=== PATIENT | male | born 1940 | race Caucasian/White ===

== ENCOUNTER → 2023-10-24 12:38 | Outpatient (REF) | payer MEDICARE, SELFPAY | LOC: HWRAD 12:38 | PROVIDERS: ATTENDING PHYSICIAN Nurse Practitioner Family | DX: N40.1 Benign prostatic hyperplasia with lower urinary tract symptoms (principal); R10.30 Lower abdominal pain, unspecified; R19.5 Other fecal abnormalities; Z87.19 Personal history of other diseases of the digestive system | CPT/HCPCS: 74177; Q9967 ==

== ENCOUNTER 2023-10-26 07:03 | Emergency (ER) | payer MEDICARE, SELFPAY ==
[2023-10-26 07:05] VITALS: BP 172/79
--- NOTE | 2023-10-26 07:32 | ED.GENMED ---
History of Present Illness
<Christ Ramos DO, Resident - Last Filed: 10/26/23 09:26>
General
Chief Complaint: Musculo-Skeletal Complaint
Source: patient
Time Seen by Provider: 10/26/23 07:29
History of Present Illness
History of Present Illness:
Patient is a 83-year-old male presenting to the ED with swelling ring finger since Saturday. He reports no inciting injury but severe swelling and difficulty with movement of finger. He states that there is pain and he has been taking ibuprofen
to manage symptoms.
Past History
<Christ Ramos DO, Resident - Last Filed: 10/26/23 09:26>
Past History
ED Past Medical History: GERD, HTN, Psychiatric (anxiety) and Other (BPH, OA, chronic abdominal pain)
ED Past Surgical History: Cholecystectomy (2012) and Other (Adenoidectomy, hemorrhoidectomy)
Social History
Tobacco: Non-smoker
Alcohol: Occasional
Drug: None
Personal:
Living: with family
Employment: Retired
Family History
Family History: Other (Noncontributory)
Review of Systems
<Christ Ramos DO, Resident - Last Filed: 10/26/23 09:26>
Review of Systems
Constitutional: Reports no symptoms
EENT: Reports no symptoms
Respiratory: Reports no symptoms
Cardiac: Reports no symptoms
ABD/GI: Reports no symptoms
: Reports no symptoms
Musculoskeletal: Reports joint swelling and other (finger pain, swelling )
Skin: Reports no symptoms
Phy Exam
<Christ Ramos DO, Resident - Last Filed: 10/26/23 09:26>
General Physical Exam
General Presentation: well appearing and no apparent distress
General age: appears stated age
General Skin: warm and dry
General Habitus: normal
General Mental: alert
General Hydration: appears well hydrated
Musculoskeletal Exam
Musculoskeletal Exam: full ROM and other (pain with ring finger movement, swelling of distal digit, pain around joint distal to ring. )
Skin Exam
Skin Exam: normal color and warm/dry
Psychiatric Exam
Psychiatric Exam: normal mood/affect
Course
<Christ Rmaos DO, Resident - Last Filed: 10/26/23 09:26>
Orders/Labs/Results
Orders:
Orders
10/26/23 07:07
CR Finger(s)/thumb Min 2 Vw Lt Urgent
Comment:
Reason For Exam: swelling
Indicate Which Finger:: Ring Finger
10/26/23 08:48
Ibuprofen [Motrin] 600 mg PO NOW STA
10/26/23 09:12
Aluminium Finger Splint Left ONCE
Vital Signs
Initial and Last Documented VS:
Initial Vital Signs
Temp Pulse Resp BP Pulse Ox
97.9 F 62 18 172/79 96
10/26/23 07:05 10/26/23 07:05 10/26/23 07:05 10/26/23 07:05 10/26/23 07:05
Last Documented Vital Signs
Temp Pulse Resp BP Pulse Ox
98.2 F 62 16 142/78 98
10/26/23 09:51 10/26/23 09:51 10/26/23 09:51 10/26/23 09:51 10/26/23 09:51
<Juno Sahu DO - Last Filed: 10/26/23 14:01>
Orders/Labs/Results
Orders:
Orders
10/26/23 07:07
CR Finger(s)/thumb Min 2 Vw Lt Urgent
Comment:
Reason For Exam: swelling
Indicate Which Finger:: Ring Finger
10/26/23 08:48
Ibuprofen [Motrin] 600 mg PO NOW STA
10/26/23 09:12
Aluminium Finger Splint Left ONCE
Vital Signs
Initial and Last Documented VS:
Initial Vital Signs
Temp Pulse Resp BP Pulse Ox
97.9 F 62 18 172/79 96
10/26/23 07:05 10/26/23 07:05 10/26/23 07:05 10/26/23 07:05 10/26/23 07:05
Last Documented Vital Signs
Temp Pulse Resp BP Pulse Ox
98.2 F 62 16 142/78 98
10/26/23 09:51 10/26/23 09:51 10/26/23 09:51 10/26/23 09:51 10/26/23 09:51
<Christ Ramos DO, Resident - Last Filed: 10/26/23 09:26>
MDM/Problems Addressed
Differential Diagnosis Includes:
finger swelling
MDM/Problems Addressed:
Patient is a 83-year-old male presenting to the ED with severe ring finger swelling since Saturday. He is stable. Pain is being managed with ibuprofen. A ring cutter was used to remove his gold band from the finger. Patient was recommended to
ice Finger and use ibuprofen as needed for pain and swelling reduction. finger x-ray showed no fracture or damage to the bone. Injury limited to soft tissue inflammation.
Chronic conditions affecting care:
NA
Acute Exacerbation and/or Progression of Chronic Illness:
NA
<Christ Ramos DO, Resident - Last Filed: 10/26/23 09:26>
*Radiology
Radiology exam reviewed: radiology read reviewed (Xray negative for fracture)
*Pulse Oximetry
Patient hypoxic: not evaluated
*EKG
Interpreted by ED Provider?: NA
*Fretted Instrument Maker Hand Interpretation
Rate: Fretted Instrument Maker Hand- N/A
*Critical Care Note
Total Time (30-74mins, 75-104mins- exclusive of procedures): Not Applicable
ED Attending Note
<Christ Ramos DO, Resident - Last Filed: 10/26/23 09:26>
-
Portions of this chart may have been created with voice recognition software.� Occasional wrong word or��sound alike� substitutions may have occurred due to the inherent limitations of voice recognition software.
<Juno Sahu DO - Last Filed: 10/26/23 14:01>
ED Attending Note
Patient seen and examined by attending physician: Yes
I performed a history and physical exam of patient and discussed management with resident, I reviewed resident's note and agree with documented findings and plan of care.: Yes
ED Attending Note:
Patient is a [id number] 83-year-old male who presents with pain and swelling of the left ring finger. Patient's ring is still on. Patient denies numbness or paresthesias. Patient denies any known injury to the finger. This been going on
for last 2 to 3 days. Patient denies any previous history of similar episodes. On physical exam the patient is very tender and swollen about the PIP joint of the left ring finger. There is pallor distal to the wedding ring. Neurovascularly and
tendons are intact. Skin is intact. Patient is tender mostly around the lateral medial size of the PIP. Patient has full range of motion. X-rays reviewed. Appears the patient has some sort of inflammation of the finger. Ring is removed. This
was done after consultation with the patient to make sure it was okay.. X-rays reviewed. Believe the patient has some sort of inflammation of the finger. Patient will be splinted and treated with anti-inflammatories. Also ice and elevation.
Discharge Plan
Departure
Patient Disposition: Home (Routine Discharge)
Date of Disposition: 10/26/23
Time of Disposition: 09:11
Patient with high blood pressure during this ER visit?: Yes
Condition: Good
Discharge Problem:
Finger swelling
Instructions: BLOOD PRESSURE
Prescriptions:
No Action
losartan 100 MG tablet
100 mg PO DAILY
diclofenac potassium 50 mg tablet
50 mg PO BID Qty: 20 0RF
diazepam [Valium] 2 mg tablet
2 mg PO BID PRN (Reason: muscle spasm) Qty: 10 0RF
Patient Comments:
01/06/2023: last filled 01/06/23, 10 tabs for 5 days from [facility]
cetirizine [Zyrtec] 10 mg Tablet
10 mg PO DAILY PRN (Reason: allergies )
fluticasone propionate [Flonase] 50 mcg/actuation Thelma,Suspension
1 spray INTRANASAL BID PRN (Reason: allergies)
multivitamin Tablet
1 tab PO .5X WEEKLY
clonazepam 0.5 mg tablet
0.5 mg PO HS
Patient Comments:
01/15/2023: last filled 01/06/23, 30 tabs for 30 days from [facility]
calcium carbonate [Tums] 200 mg calcium (500 mg) Tablet,Chewable
200 mg PO BID PRN (Reason: heartburn)
metoprolol succinate 25 mg tablet extended release 24 hr
25 mg PO DAILY
cyclobenzaprine 5 mg tablet
5 mg PO Q8H PRN (Reason: muscle spasms)
Metamucil (with sugar) 3.4 GM powder in packet
3.4 gm PO DAILY PRN (Reason: constipation)
amlodipine 5 mg tablet
5 mg PO DAILY Qty: 30 0RF
Referrals:
Palmer Phan MD [Family Provider] -
Interventions
Interventions:
*Risk Screen - Suicide Last Done: 10/26/23 09:51
*General Assessment Last Done: 10/26/23 07:05
*Neglect/Abuse Screening Last Done: 10/26/23 09:02
ED- Fall Risk Assessment Last Done: 10/26/23 09:05
*ED COVID-19 Vaccine History Last Done: 10/26/23 07:05
*Nursing Disposition Last Done: 10/26/23 09:51
ED-Musculoskeletal Assessment Last Done: 10/26/23 09:05
Discharge Date and Time
Discharge Date/Time: 10/26/23 09:52
Print Language: TURKMEN
[2023-10-26] MEDS: MOTRIN 600 MG PO (08:55)
[2023-10-26 09:02] VITALS: BP 146/85
[2023-10-26 09:51] VITALS: BP 142/78
== END 2023-10-26 09:52 | disposition home or self-care (01) ==
LOC: EMR 07:03
PROVIDERS: EMERGENCY PHYSICIAN Emergency Medicine; FAMILY PHYSICIAN Family Medicine
DX: R22.32 Localized swelling, mass and lump, left upper limb (principal); M79.645 Pain in left finger(s)
CPT/HCPCS: 99283; 73140

== ENCOUNTER → 2024-02-04 10:06 | Outpatient (REF) | payer MEDICARE, SELFPAY ==
[2024-02-04 12:56] LABS: Blood Urea Nitrogen 19 mg/dl (9-20); Calcium 9.9 mg/dl (8.4-10.2); Carbon Dioxide 29 mmol/L (22-30); Chloride 98 mmol/L (98-107); Glucose 101 mg/dl (70-99); HDL Cholesterol 80 mg/dl; LDL Cholesterol, Calculated 90 mg/dl; Potassium 4.4 mmol/L (3.5-5.1); Sodium 137 mmol/L (135-145); Total Cholesterol 183 mg/dl (50-199); Triglyceride 68 mg/dl (10-149); Very Low Density Lipoprotein 13 mg/dl (0-30); eGFR > 60.00
== END ==
LOC: HWLAB 10:06
PROVIDERS: ATTENDING PHYSICIAN Internal Medicine Cardiovascular Disease; FAMILY PHYSICIAN Family Medicine
DX: E78.5 Hyperlipidemia, unspecified (principal); R00.2 Palpitations
CPT/HCPCS: 36415; 80048; 80061

== ENCOUNTER → 2024-11-11 12:59 | Outpatient (REF) | payer OTHER, SELFPAY | LOC: RAD 12:59 | PROVIDERS: ATTENDING PHYSICIAN Internal Medicine | DX: R10.9 Unspecified abdominal pain (principal) | CPT/HCPCS: 74176 ==

== ENCOUNTER → 2024-12-15 10:54 | Outpatient (REF) | payer OTHER, SELFPAY ==
[2024-12-15 12:15] LABS: Urine Character Clear (Clear)
[2024-12-15 12:36] LABS: Urine Red Blood Cell 0-2 /HPF (0-2); Urine Squamous Cell 0-2 /LPF (Few); Urine White Cell 0-2 /HPF (0-5)
== END ==
LOC: REG 10:54
PROVIDERS: ATTENDING PHYSICIAN Specialist
DX: N41.9 Inflammatory disease of prostate, unspecified (principal)
CPT/HCPCS: 81003; 81015

== ENCOUNTER 2025-01-05 08:47 | Inpatient (IN) | payer OTHER, SELFPAY ==
[2025-01-03] VITALS (9 sets, daily range): BP systolic 152–179; BP diastolic 79–92; BMI 24.7; BMI 23.6
--- NOTE | 2025-01-03 13:23 | ED.GENMED ---
History of Present Illness
General
Chief Complaint: Abdominal Symptoms
Source: patient
Time Seen by Provider: 01/03/25 13:14
History of Present Illness
History of Present Illness:
84-year-old male presents to the emergency room complaining of abdominal pain. Pain is located in the lower abdomen particular on the right. Pain began about 6 weeks ago or so. He had a CAT scan as an outpatient which showed diverticulitis. He
was prescribed Augmentin which helped for a while but the pain seem to come back. He has had recent appointments with urology and gastroenterology. His wet cleaner machine thought he might have a recurrence of diverticulitis and prescribed Levaquin
and Flagyl 3 days ago. He does not feel any better and in fact maybe feels a bit worse since starting those antibiotics. He does not have any constipation. He denies any fever or chills.
Past History
Past History
ED Past Medical History: GERD, HTN, Psychiatric (anxiety) and Other (BPH, OA, chronic abdominal pain)
ED Past Surgical History: Cholecystectomy (2012) and Other (Adenoidectomy, hemorrhoidectomy)
Social History
Tobacco: Non-smoker
Alcohol: Occasional
Drug: None
Personal:
Living: with family
Employment: Retired
Family History
Family History: Other (Noncontributory)
Phy Exam
Physical Exam
Physical Exam:
General: Awake, Alert, Oriented X3. No acute distress.
Vitals: unremarkable
Head: Atraumatic
Eyes: Pupils equal, EOMI
Throat: Airway intact, no exudates
Neck: Trachea midline
Lungs: Clear and equal b/l
Heart: Regular rate, no murmurs
Abd: Soft, moderate tenderness lower abdomen, No pulsatile mass
Neuro: Nonfocal
Skin: Warm, dry, no rash
Extremities: pulses equal b/l, no edema
Course
Orders/Labs/Results
Orders:
Orders
01/03/25 13:22
CT Abd/Pel (IV only)-DH only Urgent
Comment:
Reason For Exam: lower abd pain
01/03/25 13:58
Basic Metabolic Panel Urgent
Complete Blood Count/With Diff Urgent
01/03/25 15:31
Urinalysis Reflex To Culture Urgent
Date Specimen was Collected: 01/03/25
Time Specimen was Collected: 15:30
Urine Microscopic Reflex Cult Urgent
01/03/25 17:30
Admit/Transfer Patient As Directed
Co-Sign Provider:
Level of Care: Observation services
Assign to:: Medical/Surgical
Physician / Group: Meet Arias
Diagnosis: Diverticulitis
01/03/25 17:31
Code Status As Directed
Resuscitation Status: Full Code
PRN Pain Medication Management As Directed
May give lesser potent ordered pain med per pt: Yes
preference::
Protocol:: Medication orders for pain may be administered in a
manner that supports deferring to patient preference
when the pt is:
- Requesting an ordered lesser potent pain medication.
Least to most potent pain medications are defined
as: acetaminophen < NSAID < tramadol < opioids
(morphine, oxycodone, hydromorphone).
- Requesting a lesser dose of the same medication IF
ORDERED.
- Requesting a less intrusive route of administration
if both routes are prescribed by the provider (PO <
IV).
01/03/25 17:40
Osmolality, Random Urine Routine
Abnormal Lab Results
01/03/25 01/03/25
13:58 15:31
RBC 4.53 L 10^6/uL
(4.70-6.10)
Hct 38.4 L %
(39.0-52.0)
Absolute Lymphs (auto) 1.1 L 10^3/uL
(1.2-3.4)
Absolute Monos (auto) 0.7 H 10^3/uL
(0.1-0.6)
Neutrophils % 76.0 H %
(42.2-75.2)
Lymphocytes % 14.6 L %
(20.5-51.1)
Sodium 122 L mmol/L
(135-145)
Chloride 92 L mmol/L
(98-107)
Glucose 117 H mg/dl
(70-99)
Urine Ketones 3+ A
(Negative)
Ur Occult Blood Reflex 4+ A
(Negative)
Urine RBC 11-15 A /HPF
(0-2)
01/03/25 13:58
01/03/25 13:58
Vital Signs
Initial and Last Documented VS:
Initial Vital Signs
Temp Pulse Resp BP Pulse Ox
98.4 F 77 18 173/89 96
01/03/25 13:05 01/03/25 13:05 01/03/25 13:05 01/03/25 13:05 01/03/25 13:05
Last Documented Vital Signs
Temp Pulse Resp BP Pulse Ox
98.4 F 75 18 172/84 97
01/03/25 13:05 01/03/25 18:15 01/03/25 13:05 01/03/25 18:00 01/03/25 18:15
MDM/Problems Addressed
Differential Diagnosis Includes:
Diverticulitis, diverticular abscess, constipation,
MDM/Problems Addressed:
Patient presents with abdominal pain. He has diverticulitis on CAT scan. In addition labs show significant hyponatremia. Unclear if this is polydipsia versus hyponatremia related to pain. Patient will require hospitalization for IV antibiotics.
Sodium can be monitored as an inpatient.
*Radiology
Radiology exam reviewed: radiology read reviewed
*Pulse Oximetry
SaO2: 96
Oxygen Mode of Delivery: Room air
Patient hypoxic: no
*Critical Care Note
Total Time (30-74mins, 75-104mins- exclusive of procedures): Not Applicable
ED Attending Note
-
Portions of this chart may have been created with voice recognition software.� Occasional wrong word or��sound alike� substitutions may have occurred due to the inherent limitations of voice recognition software.
Discharge Plan
Departure
Patient Disposition: Admit
Date of Disposition: 01/03/25
Time of Disposition: 16:26
Presentation/result/management discussed w/ accepting MD/DO: Hospitalist
Condition: Fair
Discharge Problem:
Diverticulitis
Interventions
Interventions:
*Risk Screen - Suicide Last Done: 01/03/25 13:05
*General Assessment Last Done: 01/03/25 14:01
*Neglect/Abuse Screening Last Done: 01/03/25 14:59
*ED- Fall Risk Assessment Last Done: 01/03/25 14:01
*ED COVID-19 Vaccine History Last Done: 01/03/25 14:01
GC-Ohfuiw-Flibntvzir Assessment Last Done: 01/03/25 14:02
[2025-01-03 14:04] LABS: Hematocrit 38.4 % (39.0-52.0); Hemoglobin 13.5 g/dL (13.0-18.0); Mean Corp Hgb Conc. 35.2 g/dL (33.0-37.0); Mean Corpuscular Volume 84.8 fL (80.0-94.0); Nucleated Red Blood Cells % 0 % (-); Platelet Count 180 10^3/uL (130-400); Red Cell Dist. Width 12.2 % (11.5-14.5)
[2025-01-03 14:17] LABS: Blood Urea Nitrogen 13 mg/dl (9-20); Calcium 9.4 mg/dl (8.4-10.2); Carbon Dioxide 22 mmol/L (22-30); Chloride 92 mmol/L (98-107); Estimated Creatinine Clearance 68 ml/min; Glucose 117 mg/dl (70-99); Potassium 4.5 mmol/L (3.5-5.1); Sodium 122 mmol/L (135-145); eGFR > 60.00
[2025-01-03 15:58] LABS: Urine Character Clear (Clear)
[2025-01-03 16:09] LABS: Urine Squamous Cell 0-2 /LPF (Few); Urine White Cell 0-2 /HPF (0-5)
--- NOTE | 2025-01-03 16:31 | W.PN.UPDATE ---
Update Note
Progress Note Update
This note serves as an addendum to the H&P by exhaust emissions inspector Patrick Jones
HPI
84M non skoker HX chronic abdominal disconfort, GERD, HTN Anxiety, BPH, HX Cholecystectomy (2013) Adenoidectomy, hemorrhoidectomy seen at ER:
- pw abdominal pain in the lower abdomen particular on the right.
- Pain began about 6 weeks ago or so
- OP CT AP showed diverticulitis.
- He was prescribed Augmentin which helped for a while but the pain seem to come back.
- had recent appointments with urology and gastroenterology.
- gage maker thought he might have a recurrence of diverticulitis and prescribed Levaquin and Flagyl 3 days ago.
- He does not feel any better and in fact maybe feels a bit worse since starting those antibiotics.
- not have any constipation. He denies any fever or
PHX; see above
Relevant VS
Vital Signs
Temp Pulse Resp BP Pulse Ox
98.4 F 77 18 156/81 96
01/03/25 13:05 01/03/25 13:05 01/03/25 13:05 01/03/25 15:00 01/03/25 15:01
PE
Gen: no toxic
HEENT: anicteric
Neck: supple
Lungs: CTA
Cor:RRR S1 S2
Abdomen:�soft
MAC DEVELOPER: NFND
Relevant Data
01/15/23 01/03/25 01/03/25
19:46 13:58 15:31
WBC 7.6
Hgb 13.9 13.5
Plt Count 180
Sodium 122 L
Potassium 4.5
Chloride 92 L
BUN 13
Creatinine 0.7
eGFR > 60.00
Urine RBC 11-15 A
Urine WBC (Reflex) 0-2
CT AP W IV contrast
- Mild acute sigmoid diverticulitis.
- No evidence for perforation or pericolonic abscess.
- Urinary bladder wall thickening, nonspecific but recommend correlation with a urinalysis if there is clinical concern for acute cystitis.
Last hospitalist admission:
ASSESSMENT & PLAN
Acute uncomplicated mild sigmoid diverticulitis
- has failed OP Levaquin/Flagyl
- Switch to IV Zosyn
- PRN analgesia
- Full liquid
- IVF as below and anti emetics PRN
- CRS consult
Asymptomatic moderately hypochloremic hyponatremia
- suspect dehydration
- NS 40/H for 500 cc only
- check Ur Osm
- f/u Na in AM
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
HX chronic abdominal discomfort
GERD
HTN
Anxiety
BPH
HX Cholecystectomy (2012)
HX Adenoidectomy
HX hemorrhoidectomies
DVT Px: SCD
Full code
IP MS
--- NOTE | 2025-01-03 16:48 | HPS.HSE ---
Family Physician
-
Family Physician: Xena Hardy
Chief Complaint
-
abdominal pain
History of Present Illness
Patient is a 84-year-old male with past medical history significant for hypertension, dyslipidemia, CAD, BPH, GERD and anxiety who presented to [facility] ED for evaluation of abdominal pain. Patient reports having episode of diverticulitis in November 2024
with effective out patient treatment. He reports lower abdominal pain started again approximately 1-1.5 weeks ago and has been consistent since then. He reports seeing GI out patient who placed him on oral antiboitics that have been ineffective. He
reports loose bowel movements, and urinary frequency. Patient denies fever, chills, cough, shortness of breath, chest pain, nausea, vomiting or constipation.
Medical History
Past Medical History
Past Medical History: Reports Other
Additional Past Medical History:
hypertension
dyslipidemia
CAD
BPH
GERD
anxiety
Hx hyponatremia
Past Surgical History: Reports Other
Additional Past Surgical History:
adenoidectomy
cholecystectomy
hemorrhoidectomy
TURP with Dr. Francisco October 2017
prostatectomy 10/2017
Social History
Tobacco: Non-smoker
Alcohol: Occasional
Drug: None
Personal:
Living: With Family
Family History
Family History: Not pertinent
Allergies / Home Medications
Allergies reflects when Allergies were last updated in [facility].
Home Medications with original date entered in [facility]
Allergy/Medication List:
Allergies
Allergy/AdvReac Type Severity Reaction Status Date / Time
milk Allergy indigestion Verified 01/03/25 13:05
No Known Drug Allergies Allergy NA Verified 01/03/25 13:05
plantain Allergy hayfever Verified 01/03/25 13:05
ragweed pollen Allergy hayfever Verified 01/03/25 13:05
Home Medications
losartan 100 mg tablet 100 mg PO DAILY Blood pressure 09/24/19
calcium carbonate (Tums) 200 mg PO BID PRN heartburn 01/15/23
cetirizine 10 mg tablet (Zyrtec) 10 mg PO DAILY PRN allergies 01/15/23
clonazepam 0.5 mg tablet 0.5 mg PO HS 01/15/23
fluticasone propionate 50 mcg/actuation nasal spray,suspension 1 spray intranasal BID PRN allergies 01/15/23
metoprolol succinate 25 mg tablet,extended release 24 hr 25 mg PO DAILY 01/15/23
multivitamin 1 tab PO .5X WEEKLY 01/15/23
psyllium husk (with sugar) 3.4 gram oral powder packet (Metamucil (with sugar)) 3.4 gm PO DAILY PRN constipation 01/15/23
Review of Systems
-
History Source: Patient
Constitutional: Denies Fever or Chills
EENT: Denies Sore Throat
Respiratory: Denies Cough or Trouble Breathing
Cardiac: Denies Chest Pain, Diaphoresis, Palpitations or Syncope
Abdomen/GI: Reports Abdominal Pain and Diarrhea (loose stools ); Denies Nausea, Vomiting or Constipated
: Reports Frequency and Urgency; Denies Dysuria
Musculoskeletal: Denies Joint Pain or Joint Swelling
Skin: Denies Rash
Neurological: Denies Dizzy, Headache or Weakness
Physical Exam
Vital Signs
Vital Signs
Temp Pulse Resp BP Pulse Ox
98.4 F 77 18 156/81 96
01/03/25 13:05 01/03/25 13:05 01/03/25 13:05 01/03/25 15:00 01/03/25 15:01
Physical Exam
General: Well Developed, Well Nourished, No Apparent Distress and Conversant
HEENT: NormoCephalic, Moist mucous membranes, Atraumatic, Nose Appears Normal and Ears Appear Normal
Respiratory: Clear and Non Labored Respirations; No Wheezes, Rales or Rhonchi
Cardiac: S1/S2 and Regular Rhythm; No Murmur, Rub or Gallop
Breast: Deferred by me
GI: Soft, Non Distended, Normal Bowel Sounds and Tender; No Organomegaly
Rectal: Deferred by Provider
Genito-urinary: Deferred by me
Musculoskeletal: No Clubbing, No Cyanosis and No Edema
Skin: Warm and IV/Catheter Site; No Rash
Neuro: Awake, AO x 3 and Nonfocal/grossly intact
Hematologic/Lymphatic: No Lymphadenopathy
Psych: Calm
Laboratory Results
-
01/03/25 13:58
01/03/25 13:58
Data Reviewed
-
CT Scan: Report Reviewed by me (Abd/Pel: Mild acute sigmoid diverticulitis. No evidence for perforation or pericolonic abscess. Urinary bladder wall thickening, nonspecific but recommend correlation with a urinalysis if there is clinical concern
for acute cystitis.)
Lab Data: Labs Reviewed by me (Na+ 122, )
Impression/Plan
-
IMPRESSION/PLAN:
#abdominal pain likely 2/2 diverticulitis
Abd/Pel CT: Mild acute sigmoid diverticulitis. No evidence for perforation or pericolonic abscess.
Urinary bladder wall thickening, nonspecific but recommend correlation with a urinalysis if there is clinical concern for acute cystitis.
failed out patient antibotic therapy
- Admit to med/surg
- IV Zosyn
- supportive care
- Full liquid diet, advance as tolerated
- Consult Colorectal
#hyponatremia
asymptomatic
Na+ 122
likely hypovolemic
- check serum osmo
- check urine osmo and urine creatine
- IVF
- monitor Na+
#hypertension
- continue metoprolol and losartan
#dyslipidemia
- continue atorvastatin
#BPH
- continue tamsulosin
#anxiety
- continue clonazepam
#CAD
#GERD
Code status: full code
DVT prophylaxis: lovenox sq
[2025-01-03] MEDS: NSS 500 IV (20:22)
[2025-01-03] MEDS: TYLENOL 650 MG PO (20:23)
[2025-01-03] MEDS: ZOSYN 50 IV (20:24)
[2025-01-03] MEDS: LOVENOX 40 MG SC (20:24)
[2025-01-03] MEDS: KLONOPIN 0.5 MG PO (23:39)
[2025-01-04] MEDS: ZOSYN 50 IV ×4 (02:58→19:24)
[2025-01-04 07:14] LABS: Blood Urea Nitrogen 10 mg/dl (9-20); Calcium 9.0 mg/dl (8.4-10.2); Carbon Dioxide 25 mmol/L (22-30); Chloride 94 mmol/L (98-107); Estimated Creatinine Clearance 68 ml/min; Glucose 80 mg/dl (70-99); Potassium 4.3 mmol/L (3.5-5.1); Sodium 125 mmol/L (135-145); eGFR > 60.00
[2025-01-04 07:32] VITALS: BP 163/90
[2025-01-04 07:53] LABS: Hematocrit 37.2 % (39.0-52.0); Hemoglobin 13.3 g/dL (13.0-18.0); Mean Corp Hgb Conc. 35.8 g/dL (33.0-37.0); Mean Corpuscular Volume 84.5 fL (80.0-94.0); Nucleated Red Blood Cells % 0 % (-); Platelet Count 163 10^3/uL (130-400); Red Cell Dist. Width 12.3 % (11.5-14.5)
[2025-01-04] MEDS: COZAAR 100 MG PO (08:00)
[2025-01-04] MEDS: FLOMAX 0.4 MG PO (08:00)
[2025-01-04] MEDS: TOPROL XL 25 MG PO (08:00)
[2025-01-04] MEDS: TORADOL 10 MG IV (08:11)
[2025-01-04 08:35] LABS: C-Reactive Protein < 5.00 mg/L (0.0-10.00)
--- NOTE | 2025-01-04 09:37 | CM ---
Addendum entered by Gage Geller 01/04/25 09:43:
OBS status reviewed with the pt, pt expressed his understanding, signed [facility] letter placed on chart, pt has a copy.
Original Note:
CM following re: discharge planning.
Reviewed pt's chart, met with pt.
Pt is an 84 year old male, admitted with OBS status and primary dx of abdominal pain likely 2/2 diverticulitis. PMH significant for hypertension, dyslipidemia, CAD, BPH, GERD and anxiety.
Pt reports he has been living with spouse in an independent apartment at [facility] since June 2024, has 3 supportive sons. 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 No DME, VN or SNF history.
PCP: Xena Hardy
Pharmacy: [facility].
D/C plan: home with anticipated no needs. Family to transport at discharge.
CM will follow with discharge plan updates as hospitalization progresses
--- NOTE | 2025-01-04 10:09 | W.PN.HOSP.TC ---
Today's Communication/Plan
-
Hold oral fluid intake to 40 oz per day due to hyponatremia
colorectal consult recs:
-No plans for surgery at this time. If he worsens, he will require a colectomy with colostomy creation
-Stool cultures/c.diff (mild colonic wall thickening from the mid transverse colon to the sigmoid colon)
Assessment / Plan
Assessment / Plan
84yo male with a history of one previous attack of diverticulitis, presents to the ER complaining of abdominal pain and constipation, found to have sigmoid diverticulitis on CT.
#Abdominal pain
Hx of diverticulitis, most likely due to diverticulitis
CT scan showed Mild acute sigmoid diverticulitis , no evidence of perforation , pericolic abbesses
continue Zosyn day #2 today
full liquid diet
GI consulted
colorectal consulted recommend eventual colonoscopy as an outpatient
#Hyponatremia
Asymptomatic
Na 122--->125
IV fluid
urine
oral fluid restriction to 40 oz per day ,
monitor Na if no improvement or worsening consult Nephro
#Benign prostatic hypertrophy
- hx of BPH
- On tamsulosin
- Ct scan showed urinary bladder wall thickening
- recommended f/u with urology outpatient visit
#Hypertension
Continue metoprolol and losartan
#Dyslipidemia
#Anxiety
Continue Clonazepam
DVT prophylaxis -Lovenox sc
code: full code
Anticipated Discharge: 24 - 48 hours
Subjective/Interval History
-
Date of Service: January 04, 2025
patient slept well yesterday , has moderate lower abdominal pain. mo m/v/f. had loose yellow bowel movement yesterday with dark brown to black color spots
Objective Data
-
Labs:
Laboratory Results
01/04/25 01/04/25
06:16 07:28
WBC 5.3
Hgb 13.3
Hct 37.2 L
Plt Count 163
Sodium 125 L Cancelled
Potassium 4.3 Cancelled
Chloride 94 L Cancelled
Carbon Dioxide 25 Cancelled
BUN 10 Cancelled
Creatinine 0.7 Cancelled
Glucose 80 Cancelled
Calcium 9.0 Cancelled
Vital Signs:
Vital Signs
Temp Pulse Resp BP Pulse Ox
97.5 F 80 18 163/90 98
01/04/25 07:32 01/04/25 08:00 01/04/25 07:32 01/04/25 08:00 01/04/25 07:32
I&O
01/03/25 01/04/25 01/05/25
06:59 06:59 06:59
Intake Total 700 / 700
Balance 700 / 700
Review of Systems
-
History Source: Patient
Respiratory: Reports No Symptoms
Cardiac: Reports No Symptoms
Abdomen/GI: Reports No Symptoms
Genitourinary: Reports Frequency
Musculoskeletal: Reports No Symptoms
Neuro: Reports No Symptoms
Physical Exam
-
General: Well Developed and Well Nourished
HEENT: Normocephalic and Atraumatic
Respiratory: Clear to Auscultation
Cardiac: Regular Rhythm and S1/S2
GI: Soft, Nondistended, Normal Bowel Sounds and Tender (lower abdominal tenderness)
Musculoskeletal: No Clubbing, No Cyanosis and No Edema
Skin: Warm and Dry
Neuro: Awake, Alert and Oriented
--- NOTE | 2025-01-04 10:55 | CON.CRS ---
Consultation
-
Date/Time Consultation Requested: 01/03/2025, 19:44
Date/Time Consultation Performed: 01/04/2025, 08:20
Requesting Provider: Rosie Herzog CRNP
Performing Provider: Timothy Dawn MD
Reason for Consultation: diverticulitis
Medical History
-
Chief Complaint: abdominal pain
History of Present Illness:
84yo male, with a PMH of diverticulitis x1, presents to [facility] due to abdominal pain. He states he has had this pain for about 2 months 'off and on'. However, his pain was so bad the other day, he came to our ER. Previously when this
started, he saw his PCP who saw him in November and was started on outpatient abx, which did not help. He currently has some constipation. Denies blood in stool. His last bowel movement was yesterday. His last colonoscopy was in [address] Tovar,
which showed diverticulosis in the sigmoid and distal descending colon, one 2 to 3mm polyp in the cecum, and one 6 to 7mm polyp in the proximal descending colon. On admission to the ER, his WBC was 7.6. He remains afebrile and his vitals have been
normal. CT A/P shows 'Mild acute sigmoid diverticulitis. No evidence for perforation or pericolonic abscess, Urinary bladder wall thickening, nonspecific but recommend correlation with a urinalysis if there is clinical concern for acute cystitis,
Mild colonic wall thickening from the mid transverse colon to the sigmoid colon.' Given these findings, we have been consulted for surgical opinion.
Past Medical History
Past Medical History: CAD, HTN, Hypercholesterolemia and Other (BPH, GERD, anxiety, history of hyponatremia)
Past Surgical History: Cholecystectomy and Other (adenoidectomy, hemorrhoidectomy, TURP, prostatectomy)
Social History
Tobacco: Non-Smoker
Alcohol: Occasional
Drug: None
Personal:
Family History
Family History: Reviewed & Not Pertinent
Allergies / Home Medications
Allergy/AdvReac Type Severity Reaction Status Date / Time
milk Allergy indigestion Verified 01/03/25 13:05
No Known Drug Allergies Allergy NA Verified 01/03/25 13:05
plantain Allergy hayfever Verified 01/03/25 13:05
ragweed pollen Allergy hayfever Verified 01/03/25 13:05
�Medication �Instructions �Recorded �Confirmed �Type
losartan 100 mg tablet 100 mg PO DAILY Blood pressure 09/24/19 01/03/25 History
calcium carbonate (Tums) 200 mg PO BID PRN heartburn 01/15/23 01/03/25 History
cetirizine 10 mg tablet (Zyrtec) 10 mg PO DAILY PRN allergies 01/15/23 01/03/25 History
clonazepam 0.5 mg tablet 0.5 mg PO HS Mental Health/Anxiety 01/15/23 01/03/25 History
fluticasone propionate 50 1 spray intranasal BID PRN 01/15/23 01/03/25 History
mcg/actuation nasal allergies
spray,suspension
metoprolol succinate 25 mg 25 mg PO DAILY Blood Pressure 01/15/23 01/03/25 History
tablet,extended release 24 hr
multivitamin 1 tab PO DAILY Supplement 01/15/23 01/03/25 History
psyllium husk (with sugar) 3.4 3.4 gm PO DAILY PRN constipation 01/15/23 01/03/25 History
gram oral powder packet (Metamucil
(with sugar))
levofloxacin 750 mg tablet 750 mg PO DAILY Thyroid 01/03/25 01/03/25 History
metronidazole 500 mg tablet 500 mg PO TID Infection 01/03/25 01/03/25 History
tamsulosin 0.4 mg capsule 0.4 mg PO DAILY Urinary Issue 01/03/25 01/03/25 History
Review of Systems
-
History Source: Patient
Abdomen/GI: Abdominal Pain and Constipated
A 10 point review of systems was completed, and was negative except as per HPI.
Physical Exam
Vital Signs
Temp 97.5 F 01/04/25 07:32
Pulse 80 01/04/25 08:00
Resp Rate 18 01/04/25 07:32
Blood pressure 163/90 01/04/25 08:00
SaO2 98 01/04/25 07:32
01/03/25 01/04/25 01/05/25
06:59 06:59 06:59
Actual Weight 66.361 kg
Body Mass Index (BMI) 23.6
Lab Results / Allergies
01/04/25 06:16
01/04/25 07:28
WBC 5.3 10^3/uL (4.8-10.8) 01/04/25 06:16
Hgb 13.3 g/dL (13.0-18.0) 01/04/25 06:16
Hct 37.2 % (39.0-52.0) L 01/04/25 06:16
Plt Count 163 10^3/uL (130-400) 01/04/25 06:16
Abs Immat Gran (auto) 0.0 10^3/uL (0-0.05) 01/04/25 06:16
Neutrophils % 58.7 % (42.2-75.2) 01/04/25 06:16
Allergy/AdvReac Type Severity Reaction Status Date / Time
milk Allergy indigestion Verified 01/03/25 13:05
No Known Drug Allergies Allergy NA Verified 01/03/25 13:05
plantain Allergy hayfever Verified 01/03/25 13:05
ragweed pollen Allergy hayfever Verified 01/03/25 13:05
Physical Exam
General: Well Developed, Well Nourished and No Apparent Distress
GI: Soft, Non Distended and Tender (suprapubic (mild/mod), mild LLQ/RLQ)
Skin: Warm and Dry
Neuro: AO x 3
Psych: Calm
Data Reviewed
-
CT Scan: Image Personally Visualized and interpreted, Report Reviewed by me and Discussed with Patient
Medical Tests (Nuc Med, Echo etc): Image Personally Visualized and interpreted, Report Reviewed by me and Discussed with Patient
Labs: Labs Reviewed by me, Discussed with Physician and Discussed with Patient
Old Records: Reviewed
Assessment / Plan
-
Assessment: 84yo male with a history of one previous attack of diverticulitis, presents to the ER complaining of abdominal pain and constipation, found to have sigmoid diverticulitis on CT
Plan:
-No plans for surgery at this time. If he worsens, he will require a colectomy with colostomy creation
-Stool cultures/c.diff (mild colonic wall thickening from the mid transverse colon to the sigmoid colon)
-Continue IV antibiotics
-Maintain fulls for now
-Trend WBC
-Maintain lovenox for DVT prophylaxis
-Will need eventual colonoscopy
[2025-01-04 12:29] VITALS: BP 154/83
[2025-01-04 12:34] VITALS: BP 154/83
[2025-01-04] MEDS: TYLENOL 650 MG PO ×2 (12:49→22:14)
[2025-01-04 15:15] VITALS: BP 154/75
--- NOTE | 2025-01-04 15:47 | W.PN.UPDATE ---
Update Note
Progress Note Update
I have independently evaluated the patient at the bedside. I reviewed the case with the resident and agree with the documentation unless otherwise specified.
AFVSS. Still with some lower abdomen discomfort. Sodium stable at 125, urine osmolality 450+
AO x 4, NAD. Benign cardiopulmonary exam. Tenderness to midline low abdomen palpation but no peritoneal signs, NBS+. No edema, palpable pulses. Skin warm and dry. Nonfocal neurologic exam
#Sigmoid diverticulitis. Clinically improving on IV Zosyn. Will continue to trend CBC and temperature curve, monitor abdomen exam. Advance diet to full liquids. Plan for Augmentin as stepdown regimen to complete 7-day course. Will need
colonoscopy in 6 to 8 weeks as OP
#Euvolemic hyponatremia, asymptomatic with sodium 125. Urine osmolality near 500. 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 Continue with maintenance IV fluids and start oral fluid restriction. Trend BMP. Consider nephrology consult if
sodium downtrending, may benefit from tolvaptan
Diet -- Fluid restrict, full liquid
DVT prophylaxis -- SCDs
CODE STATUS -- Full
Disposition -- Home in 24 to 48 hours
Please see resident progress note once available
[2025-01-04] MEDS: LOVENOX 40 MG SC (17:30)
[2025-01-04] MEDS: NSS 1000 IV (20:44)
[2025-01-04 23:19] VITALS: BP 156/82
[2025-01-05] MEDS: KLONOPIN 0.5 MG PO (00:02)
[2025-01-05] MEDS: ZOSYN 50 IV ×4 (01:19→19:42)
[2025-01-05] MEDS: TYLENOL 650 MG PO ×3 (05:06→21:05)
[2025-01-05 07:00] LABS: Hematocrit 37.2 % (39.0-52.0); Hemoglobin 13.0 g/dL (13.0-18.0); Mean Corp Hgb Conc. 34.9 g/dL (33.0-37.0); Mean Corpuscular Volume 85.9 fL (80.0-94.0); Platelet Count 170 10^3/uL (130-400); Red Cell Dist. Width 12.2 % (11.5-14.5)
[2025-01-05 07:20] VITALS: BP 152/85
[2025-01-05 07:26] LABS: ALT (SGPT) 25 U/L (0-50); AST (SGOT) 30 U/L (17-59); Albumin 3.7 g/dl (3.5-5.0); Alkaline Phosphatase 42 U/L (38-126); Blood Urea Nitrogen 8 mg/dl (9-20); Calcium 9.0 mg/dl (8.4-10.2); Carbon Dioxide 25 mmol/L (22-30); Chloride 96 mmol/L (98-107); Estimated Creatinine Clearance 60 ml/min; Glucose 92 mg/dl (70-99); Potassium 3.9 mmol/L (3.5-5.1); Sodium 125 mmol/L (135-145); Total Protein 6.5 g/dl (6.3-8.2); eGFR > 60.00
[2025-01-05 07:29] LABS: C-Reactive Protein < 5.00 mg/L (0.0-10.00)
[2025-01-05] MEDS: COZAAR 100 MG PO (08:17)
[2025-01-05] MEDS: FLOMAX 0.4 MG PO (08:17)
[2025-01-05] MEDS: TOPROL XL 25 MG PO (08:17)
--- NOTE | 2025-01-05 09:07 | W.PN.CRS1 ---
Today's Communication / Plan
-
full liquids
stool cultures/c diff pending
Assessment/Plan
-
Assessment: 84yo male with a history of one previous attack of diverticulitis, presents to the ER complaining of abdominal pain and constipation, found to have sigmoid diverticulitis on CT
Plan:
-No plans for surgery at this time. If he worsens, he will require a colectomy with colostomy creation
-Stool cultures/c.diff (mild colonic wall thickening from the mid transverse colon to the sigmoid colon)
-Continue IV antibiotics
-Advance to fulls
-Trend WBC
-Maintain lovenox for DVT prophylaxis
-Will need eventual colonoscopy
Subjective Data
Subjective Data
Date of Service: January 05, 2025
Patient states he has some mild suprapubic pain. He needed to urinate several times last night. Otherwise, his abdominal pain has lessened. He denies nausea or vomiting. Tolerated clears.
Objective Data
-
Vital Signs
Temp Pulse Resp BP Pulse Ox
97.8 F 75 18 152/85 99
01/05/25 07:20 01/05/25 08:17 01/05/25 07:20 01/05/25 08:17 01/05/25 07:20
Intake & Output
01/04/25 01/05/25 01/06/25
06:59 06:59 06:59
Intake Total 700 / 700 1360 / 1360
Balance 700 / 700 1360 / 1360
Intake:
Oral fluids 250 / 250 880 / 880
IV fluids (Total) 400 / 400 480 / 480
IV piggybacks 50 / 50
Other:
Number of approximated SMALL 3
amounts of urine
Number of approximated MODERATE 4
amounts of urine
Lab Results
01/05/25 06:32
01/05/25 06:32
Physical Exam
-
General: No Acute Distress and AOx3
Abdomen: Soft, Non Distended and Tender (mild suprapubic)
Skin: Warm and Dry
--- NOTE | 2025-01-05 09:45 | CM ---
CM following re: discharge planning.
Reviewed pt's chart, met with pt and pt's daughter in law at bedside.
Per UR CM pt is upgraded to inpatient admission. IMM reviewed, placed on chart, pt has a copy.
PT and OT evaluations noted - home PT vs outpatient PT/OT recommended. Pt is aware, expressed his agreement with having VN services and pt preferred [facility]
A referral to [facility] made.
Pt reports he has been living with spouse in an independent apartment at [facility] since June 2024, has 3 supportive sons. Pt described himself as independent in all areas [employer].
D/C plan: home with [facility] and family support. Family to transport at discharge.
CM will follow with discharge plan updates as hospitalization progresses
--- NOTE | 2025-01-05 12:56 | W.PN.HOSP.TC ---
Today's Communication/Plan
-
patient asked for urology consult as inpatient, spoke with urologist today and inform that it is an outpatient follow up mostly related to his BPH
Assessment / Plan
Assessment / Plan
84yo male with a history of one previous attack of diverticulitis, presents to the ER complaining of abdominal pain and constipation, found to have sigmoid diverticulitis on CT.
#Abdominal pain
Hx of diverticulitis, most likely due to diverticulitis
CT scan showed Mild acute sigmoid diverticulitis , no evidence of perforation , pericolic abbesses
continue Zosyn day #3 today, will continue for 5-7 days
full liquid diet
GI consulted
colorectal consulted recommend eventual colonoscopy as an outpatient
#Hyponatremia
Asymptomatic
Na 122--->125-->125
nephrology consulted
IV fluid
currently on full liquid
oral fluid restriction to 40 oz per day ,
#Benign prostatic hypertrophy
- hx of BPH
- On tamsulosin
- Ct scan showed urinary bladder wall thickening
- recommended f/u with urology outpatient visit
- patient asked for urology consult as inpatient, spoke with urologist today and inform that it is an outpatient follow up mostly related to his BPH
#Hypertension
Continue metoprolol and losartan
#Dyslipidemia
#Anxiety
Continue Clonazepam
DVT prophylaxis -Lovenox sc
code: full code
Anticipated Discharge: > 48 hours
Subjective/Interval History
-
Date of Service: January 05, 2025
patient still has lower abdominal pain. denied nausea, vomiting, fever, chills, dizziness, chest pain, sob.
stated that he slept well yesterday but was not able to wake up to empty his bladder that he used to do before hospitalization as he used to take the half dose of clozapine. last bowel movement was three days ago.Pt asked to see the urologist as an
inpatient.
Objective Data
-
Labs:
Laboratory Results
01/05/25
06:32
WBC 4.7 L
Hgb 13.0
Hct 37.2 L
Plt Count 170
Sodium 125 L
Potassium 3.9
Chloride 96 L
Carbon Dioxide 25
BUN 8 L
Creatinine 0.8
Glucose 92
Calcium 9.0
Total Bilirubin 1.0
AST 30
ALT 25
Alkaline Phosphatase 42
Vital Signs:
Vital Signs
Temp Pulse Resp BP Pulse Ox
97.8 F 75 18 152/85 99
01/05/25 07:20 01/05/25 08:17 01/05/25 07:20 01/05/25 08:17 01/05/25 09:57
I&O
01/04/25 01/05/25 01/06/25
06:59 06:59 06:59
Intake Total 700 / 700 1360 / 1360
Balance 700 / 700 1360 / 1360
Review of Systems
-
History Source: Patient
Respiratory: Reports No Symptoms
Cardiac: Reports No Symptoms
Abdomen/GI: Reports Abdominal Pain
Genitourinary: Reports Frequency
Musculoskeletal: Reports No Symptoms
Neuro: Reports No Symptoms
Physical Exam
-
General: Well Developed and Well Nourished
HEENT: Normocephalic and Atraumatic
Respiratory: Clear to Auscultation
Cardiac: Regular Rhythm and S1/S2
GI: Soft, Nondistended, Normal Bowel Sounds and Tender (lower abdominal tenderness)
Musculoskeletal: No Clubbing, No Cyanosis and No Edema
Skin: Warm and Dry
Neuro: Awake, Alert and Oriented
--- NOTE | 2025-01-05 13:03 | W.PN.UPDATE ---
Update Note
Progress Note Update
I have independently evaluated the patient at the bedside. I reviewed the case with the resident and agree with the documentation unless otherwise specified.
AFVSS. Still with some lower abdomen discomfort. Sodium stable at 125, urine osmolality 450+
AO x 4, NAD. Benign cardiopulmonary exam. Tenderness to midline low abdomen palpation but no peritoneal signs, NBS+. No edema, palpable pulses. Skin warm and dry. Nonfocal neurologic exam
#Sigmoid diverticulitis. Clinically improving on IV Zosyn. Will continue to trend CBC and temperature curve, monitor abdomen exam. Advance diet to full liquids. Plan for Augmentin as stepdown regimen to complete 7-day course. Will need colonoscopy
in 6 to 8 weeks as OP
#Euvolemic hyponatremia, asymptomatic with sodium 125. Urine osmolality near 500. 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 Continue with maintenance IV fluids and oral fluid restriction. Trend BMP. Consult Nephrology for consideration of
Tolvaptan
#Urine retention.� H/O BPH s/p TURP.� Has had some bladder discomfort with significant urine retention that occurred overnight.� Will consult urology for further guidance.� Continue with tamsulosin for now
Diet -- Fluid restrict, full liquid
DVT prophylaxis -- SCDs
CODE STATUS -- Full
Disposition -- Home in 24 to 48 hours
--- NOTE | 2025-01-05 15:34 | W.CON.NEPH ---
Consultation
-
Date/Time Consultation Requested: 01/05/2025 2 PM
Date/Time Consultation Performed: 01/05/2025 3 PM
Requesting Provider: Dr. Conley
Performing Provider: Dr. Mckeon
Reason for Consultation: Hyponatremia
Medical History
-
Chief Complaint: Hyponatremia
History of Present Illness:
This is an 84-year-old gentleman who has hypertension on a monotherapy regimen typically well-controlled, hyperlipidemia controlled with no statin therapy, BPH on Flomax. In the last 6 weeks he has been having abdominal pain issues. He refers to
these as his lower abdominal pain as well as his prostate pain. He was seen primary who initially prescribed Augmentin for 7 days. This had made no difference to was ultimately diagnosed as diverticulitis with CT scan. He had also then in
discussion with his urologist who recommended increase fluid intake though the patient did not drink more fluids because of nocturia. He ultimately saw gastroenterology who recommended a second antibiotic which she had taken prior to admission
again without much effect. Given the persistent discomfort he came to the emergency room for evaluation. He was noted to have hyponatremia with a sodium level of 125 for which we are asked to assist with management of. He is currently on
intravenous antibiotics as well as a clear liquid diet. He says that he was taking occasional Tylenol Extra Strength for the pain but denies using NSAIDs. He drinks perhaps 4 glasses of water per day only. His oral intake otherwise until
hospitalization has remained stable and the same.
Past Medical History
hypertension
dyslipidemia
CAD
BPH
GERD
anxiety
Hx hyponatremia
adenoidectomy
cholecystectomy
hemorrhoidectomy
TURP with Dr. Francisco October 2017
prostatectomy 10/2017
Social History
Tobacco: Non-Smoker
Alcohol: Occasional
Family History
Family History: Not Pertinent
Allergies / Home Medications
Allergy/AdvReac Type Severity Reaction Status Date / Time
No Known Drug Allergies Allergy NA Verified 01/03/25 13:05
ragweed pollen Allergy hayfever Verified 01/03/25 13:05
�Medication �Instructions �Recorded �Confirmed �Type
losartan 100 mg tablet 100 mg PO DAILY Blood pressure 09/24/19 01/03/25 History
calcium carbonate (Tums) 200 mg PO BID PRN heartburn 01/15/23 01/03/25 History
cetirizine 10 mg tablet (Zyrtec) 10 mg PO DAILY PRN allergies 01/15/23 01/03/25 History
clonazepam 0.5 mg tablet 0.5 mg PO HS Mental Health/Anxiety 01/15/23 01/03/25 History
fluticasone propionate 50 1 spray intranasal BID PRN 01/15/23 01/03/25 History
mcg/actuation nasal allergies
spray,suspension
metoprolol succinate 25 mg 25 mg PO DAILY Blood Pressure 01/15/23 01/03/25 History
tablet,extended release 24 hr
multivitamin 1 tab PO DAILY Supplement 01/15/23 01/03/25 History
psyllium husk (with sugar) 3.4 3.4 gm PO DAILY PRN constipation 01/15/23 01/03/25 History
gram oral powder packet (Metamucil
(with sugar))
levofloxacin 750 mg tablet 750 mg PO DAILY Thyroid 01/03/25 01/03/25 History
metronidazole 500 mg tablet 500 mg PO TID Infection 01/03/25 01/03/25 History
tamsulosin 0.4 mg capsule 0.4 mg PO DAILY Urinary Issue 01/03/25 01/03/25 History
Review of Systems
-
Abdominal discomfort, suprapubic discomfort.
All other systems: Negative unless noted
Physical Exam
Vital Signs
Vital Signs
Temp Pulse Resp BP Pulse Ox
97.8 F 75 18 152/85 99
01/05/25 07:20 01/05/25 08:17 01/05/25 07:20 01/05/25 08:17 01/05/25 09:57
Lab Results
WBC 4.7 10^3/uL (4.8-10.8) L 01/05/25 06:32
RBC 4.33 10^6/uL (4.70-6.10) L 01/05/25 06:32
Hgb 13.0 g/dL (13.0-18.0) 01/05/25 06:32
Hct 37.2 % (39.0-52.0) L 01/05/25 06:32
Plt Count 170 10^3/uL (130-400) 01/05/25 06:32
Sodium 125 mmol/L (135-145) L 01/05/25 06:32
Potassium 3.9 mmol/L (3.5-5.1) 01/05/25 06:32
Chloride 96 mmol/L (98-107) L 01/05/25 06:32
Carbon Dioxide 25 mmol/L (22-30) 01/05/25 06:32
BUN 8 mg/dl (9-20) L 01/05/25 06:32
Creatinine 0.8 mg/dL (0.7-1.3) 01/05/25 06:32
eGFR > 60.00 01/05/25 06:32
Glucose 92 mg/dl (70-99) 01/05/25 06:32
Calcium 9.0 mg/dl (8.4-10.2) 01/05/25 06:32
Albumin 3.7 g/dl (3.5-5.0) 01/05/25 06:32
Laboratory Tests
02/04/24 01/03/25
10:16 23:43
Sodium 137
Urine Osmolality 465
CT abdomen and pelvis 01/03/2025 with IV contrast
IMPRESSION:
Mild acute sigmoid diverticulitis. No evidence for perforation or pericolonic abscess.
Urinary bladder wall thickening, nonspecific but recommend correlation with a urinalysis if there is clinical concern for acute cystitis.
Physical Exam
Patient is awake alert oriented and in no distress. Mood and affect were pleasant, insight and judgment were good. Pupils are equal round and reactive to light, extraocular movements are intact, sclera were anicteric. Hearing was normal, ears and
nose are intact. Oropharynx was clear. Neck was supple with trachea midline and no thyromegaly. Heart was regular rate and rhythm without rubs. Lower extremities without edema. Lungs were clear to auscultation bilaterally and with normal
excursion. Abdomen was soft, nontender, with normal active bowel sounds, and no hepatosplenomegaly. Skin was without rash and with normal turgor.
Data Reviewed
-
CT Scan: Report Reviewed by me
Labs: Labs Reviewed by me
Old Records: Reviewed (11/23/2024 sodium 138)
Assessment/Plan
-
Assessment
Diverticulitis
Prostatitis
Hyponatremia
Hypertension
hyperlipidemia
BPH
Plan
History is highly suggestive of excess ADH state likely on the basis of significant pain. There is not appear to be any imbalance in intake
Check urine sodium as well as urine creatinine
[facility] if these are supportive of current therapy
IV fluids
Fluid restriction 1200ml/d
Follow BMP
Antibiotics per primary team
[2025-01-05 16:18] VITALS: BP 147/86
[2025-01-05] MEDS: TORADOL 10 MG IV ×2 (16:55→23:34)
[2025-01-05] MEDS: SAMSCA 15 MG PO (17:35)
[2025-01-05] MEDS: LOVENOX 40 MG SC (17:35)
[2025-01-05] MEDS: NSS 1000 IV (19:42)
[2025-01-05] MEDS: KLONOPIN 0.25 MG PO (23:34)
[2025-01-05 23:50] VITALS: BP 165/93
[2025-01-06] VITALS (8 sets, daily range): BP systolic 117–170; BP diastolic 62–109; PULSE 83
[2025-01-06] MEDS: ZOSYN 50 IV ×4 (01:00→20:23)
[2025-01-06] MEDS: TYLENOL 650 MG PO ×3 (05:34→23:34)
[2025-01-06 07:00] LABS: Hematocrit 38.5 % (39.0-52.0); Hemoglobin 13.7 g/dL (13.0-18.0); Mean Corp Hgb Conc. 35.6 g/dL (33.0-37.0); Mean Corpuscular Volume 86.1 fL (80.0-94.0); Platelet Count 187 10^3/uL (130-400); Red Cell Dist. Width 12.2 % (11.5-14.5)
[2025-01-06 07:22] LABS: ALT (SGPT) 38 U/L (0-50); AST (SGOT) 44 U/L (17-59); Albumin 4.3 g/dl (3.5-5.0); Alkaline Phosphatase 43 U/L (38-126); Blood Urea Nitrogen 6 mg/dl (9-20); Calcium 9.6 mg/dl (8.4-10.2); Carbon Dioxide 21 mmol/L (22-30); Chloride 103 mmol/L (98-107); Estimated Creatinine Clearance 60 ml/min; Glucose 98 mg/dl (70-99); Potassium 4.1 mmol/L (3.5-5.1); Sodium 133 mmol/L (135-145); Total Protein 7.1 g/dl (6.3-8.2); eGFR > 60.00
[2025-01-06 07:29] LABS: C-Reactive Protein < 5.00 mg/L (0.0-10.00)
[2025-01-06] MEDS: COZAAR 100 MG PO (08:26)
[2025-01-06] MEDS: FLOMAX 0.4 MG PO (08:26)
[2025-01-06] MEDS: TOPROL XL 25 MG PO (08:26)
--- NOTE | 2025-01-06 08:51 | W.PN.CRS1 ---
Today's Communication / Plan
-
As below
Assessment/Plan
-
84-year-old male with PMH of HTN, HLD, CAD, BPH, GERD, anxiety, recurrent diverticulitis (recent CT scan obtained as outpatient on 11/11/2024 showing sigmoid diverticulitis without complication; was seen by Dr. Castañeda on 12/30 and prescribed 2 weeks of
Levaquin and Flagyl and eventual plan for colonoscopy), worsening urinary difficulty (he was seen by Dr. Francisco on 12/28, no urologic issue identified) who presented for worsening abdominal pain for the last 2 months that has not been getting better;
WBC 7.6, CT showing acute mild sigmoid diverticulitis (on personal review and interpretation, there is wall thickening extending from the sigmoid to the distal transverse colon)
AFVSS
WBC 5.0 from 4.7,CRP <5.0
�Acute diverticulitis versus chronic/smoldering diverticulitis; other etiologies include infectious, inflammatory and ischemic colitis
�Unusual subacute presentation for acute diverticulitis with normal WBC and CRP; however, this appears the most likely etiology, but having concomitant bladder issues and urinary difficulty
�IV zosyn
�Advance to regular diet (no fiber restriction)
�Recommend urology consult due to persistent bladder pain and urinary difficulty
� Pain control with Tylenol and Toradol
� Encourage IS/OOB
� Appreciate hospitalist and nephrology; if tolerating regular diet, ok for dispo from colorectal standpoint pending medical clearance
Subjective Data
Subjective Data
Date of Service: January 06, 2025
Overnight, had episodes of 'bladder pain' that made it difficult to sleep. He continues having difficulty urinating. He had to go to the bathroom several times overnight and would try to urinate but have difficulty.
Denies any N/V, tolerating full liquids. Passing a little flatus, had a BM yesterday.
Objective Data
-
Vital Signs
Temp Pulse Resp BP Pulse Ox
97.4 F 104 20 170/109 97
01/06/25 07:00 01/06/25 07:00 01/06/25 07:00 01/06/25 07:00 01/06/25 07:00
Intake & Output
01/05/25 01/06/25 01/07/25
06:59 06:59 06:59
Intake Total 1360 / 1360 1300 / 1300
Balance 1360 / 1360 1300 / 1300
Intake:
Oral fluids 880 / 880 720 / 720
IV fluids (Total) 480 / 480 480 / 480
IV piggybacks 100 / 100
Other:
Number of approximated MODERATE 4 3
amounts of urine
Lab Results
01/06/25 06:34
01/06/25 06:34
Physical Exam
-
General: No Acute Distress and AOx3
HEENT: Grossly Normal
Abdomen: Soft, Non Distended, Tender (Minimally tender in the suprapubic to LLQ), No Guarding and No Rebound
Skin: Warm and Dry
--- NOTE | 2025-01-06 09:14 | W.PN.HOSP.TC ---
Today's Communication/Plan
-
Urinalysis and PSA due to suprapubic pain , urology consulted and will be seen tomorrow.
Planed to D/C home after the urology consult if every thing stable and no futher test needed.
Assessment / Plan
Assessment / Plan
84yo male with a history of one previous attack of diverticulitis, presents to the ER complaining of abdominal pain and constipation, found to have sigmoid diverticulitis on CT.
#Abdominal pain
Hx of diverticulitis, most likely due to diverticulitis
CT scan showed Mild acute sigmoid diverticulitis , no evidence of perforation , pericolic abbesses
continue Zosyn day #4 today, will continue for 5-7 days
full liquid diet
GI consulted
colorectal consulted recommend eventual colonoscopy as an outpatient
#Hyponatremia
Asymptomatic
Na 122--->125-->125-->133
nephrology consulted
IV fluid
currently on full liquid
oral fluid restriction to 40 oz per day ,
#Benign prostatic hypertrophy
- hx of BPH
- On tamsulosin
- Ct scan showed urinary bladder wall thickening
- Patient has suprapubic pain this morning, Urology consulted and ordered PSA and urinalysis and will see him tomorrow 01/07/2025
#Hypertension
Continue metoprolol and losartan
#Dyslipidemia
#Anxiety
Continue Clonazepam
DVT prophylaxis -Lovenox sc
code: full code
Anticipated Discharge: 24 - 48 hours
Subjective/Interval History
-
Date of Service: January 06, 2025
Patient had lower central abdominal pain around 4 am when he want to urinate but improved after that that. He had urinary frequency and slept better than the day before with half table of clozapine instead of whole tablet as it allow him to go to
the bathroom given him urinary frequency as he has a hx of BPH. He has difficulties emptying his bladder fully and he has to stay for 30 min to empty his bladder. No nausea, vomiting, fever. Last bowel movement was yesterday.
Objective Data
-
Labs:
Laboratory Results
01/06/25
06:34
WBC 5.0
Hgb 13.7
Hct 38.5 L
Plt Count 187
Sodium 133 L D
Potassium 4.1
Chloride 103
Carbon Dioxide 21 L
BUN 6 L
Creatinine 0.8
Glucose 98
Calcium 9.6
Total Bilirubin 0.8
AST 44
ALT 38
Alkaline Phosphatase 43
Vital Signs:
Vital Signs
Temp Pulse Resp BP Pulse Ox
97.4 F 104 20 170/109 97
01/06/25 07:00 01/06/25 07:00 01/06/25 07:00 01/06/25 07:00 01/06/25 07:00
I&O
01/05/25 01/06/25 01/07/25
06:59 06:59 06:59
Intake Total 1360 / 1360 1300 / 1300
Balance 1360 / 1360 1300 / 1300
Review of Systems
-
History Source: Patient
Respiratory: Reports No Symptoms
Cardiac: Reports No Symptoms
Abdomen/GI: Reports Abdominal Pain
Genitourinary: Reports Frequency
Musculoskeletal: Reports No Symptoms
Neuro: Reports No Symptoms
Physical Exam
-
General: Well Developed and Well Nourished
HEENT: Normocephalic and Atraumatic
Respiratory: Clear to Auscultation
Cardiac: Regular Rhythm and S1/S2
GI: Soft, Nondistended and Normal Bowel Sounds
Musculoskeletal: No Clubbing, No Cyanosis and No Edema
Skin: Warm and Dry
Neuro: Awake, Alert and Oriented
--- NOTE | 2025-01-06 10:32 | W.PN.NEPH.PH ---
Today's Communication / Plan
-
fluid restriction
no more samsca today
follow bmp
Assessment/Plan
-
Assessment
Diverticulitis
Prostatitis
Hyponatremia
Hypertension
hyperlipidemia
BPH
Plan
History is highly suggestive of excess ADH state likely on the basis of significant pain. There is not appear to be any imbalance in intake
Check urine sodium as well as urine creatinine
Sodium up to 133 from following Samsca administration
IV fluids
Fluid restriction 1200ml/d
Follow BMP
Antibiotics per primary team
-
-
Date of Service: January 06, 2025
CC / HPI / ROS
-
Chief Complaint:
Hyponatremia
History of Present Illness:
Serum sodium yamilka from 125-133 following Samsca administration on 01/05/2025
Hemodynamically stable
Review of Systems:
Complains of persistent lower abdominal and suprapubic pain
No fevers
Subjectively nonoliguric
Labs
-
Labs:
WBC 5.0 10^3/uL (4.8-10.8) 01/06/25 06:34
RBC 4.47 10^6/uL (4.70-6.10) L 01/06/25 06:34
Hgb 13.7 g/dL (13.0-18.0) 01/06/25 06:34
Hct 38.5 % (39.0-52.0) L 01/06/25 06:34
Plt Count 187 10^3/uL (130-400) 01/06/25 06:34
Sodium 133 mmol/L (135-145) L D 01/06/25 06:34
Potassium 4.1 mmol/L (3.5-5.1) 01/06/25 06:34
Chloride 103 mmol/L (98-107) 01/06/25 06:34
Carbon Dioxide 21 mmol/L (22-30) L 01/06/25 06:34
BUN 6 mg/dl (9-20) L 01/06/25 06:34
Creatinine 0.8 mg/dL (0.7-1.3) 01/06/25 06:34
eGFR > 60.00 01/06/25 06:34
Glucose 98 mg/dl (70-99) 01/06/25 06:34
Calcium 9.6 mg/dl (8.4-10.2) 01/06/25 06:34
Albumin 4.3 g/dl (3.5-5.0) 01/06/25 06:34
Physical Exam
-
Vital Signs:
Vital Signs
Temp Pulse Resp BP Pulse Ox
97.4 F 104 20 148/98 97
01/06/25 07:00 01/06/25 07:00 01/06/25 07:00 01/06/25 09:32 01/06/25 07:00
Cardiovascular:: Regular rate and rhythm
Respiratory:: Bilateral: CTA
Lung Excursion:: Normal
Abdomen:: Tender
Bowel Sounds:: Decreased
Extremity Edema:: None: Bilateral:
Purcell Catheter: No
--- NOTE | 2025-01-06 14:23 | PTOTSP ---
pt currently requires no assistance to complete simple ADLs, functional transfers, ambulation. pt reports no concerns with returning home, ability to care for self. pt has met current OT goals, no further acute OT needs identified. will sign off.
--- NOTE | 2025-01-06 14:44 | W.PN.URO.CBU ---
Today's Communication / Plan
-
wull re eval in am
Assessment / Plan
-
over active bladder with exacerbation of frequncy howeve ur cx negbladder empty u/a wnl Possiblty extravesical pressure from colitis but no obvious revesible urinary pathology will try pyrdium as tyleno some what helful but if still
probllems but may try alpha adrenergics like myrbetriq or iv valium Will stay awafro elena soto due to sie effects
Diagnosis
-
Date of Service: January 06, 2025
-
Patient Diagnosis:long h/o oveeractive bladder voids q 2-4 hours now admitted with abd pain possible colitis and voids q 1 hour straining to void ur cx neg bladder empty an ct neg h/o 2018 turp
Post Op Day:
Subjective
-
significant bother up all night straining
Objective
-
Vital Signs
Temp Pulse Resp BP Pulse Ox
97.4 F 87 20 154/86 97
01/06/25 07:00 01/06/25 11:10 01/06/25 07:00 01/06/25 11:10 01/06/25 07:00
Intake and Output
01/05/25 01/06/25 01/07/25
06:59 06:59 06:59
Intake Total 1360 / 1360 1300 / 1300
Balance 1360 / 1360 1300 / 1300
Intake:
Oral fluids 880 / 880 720 / 720
IV fluids (Total) 480 / 480 480 / 480
IV piggybacks 100 / 100
Other:
Number of approximated MODERATE 4 3
amounts of urine
Laboratory Results
01/06/25 06:34
01/06/25 06:34
Review of Systems
-
: Frequency, Difficulty Voiding and Urgency
Physical Exam
-
General - well developed, well nourished, no acute distress
Chest - clear bilaterally
Abdomen - soft, non-tender, positive bowel sounds, no CVAT, no incisional pain or distention
Genitalia - normal
Rectal - normal
Skin - warm & dry with no rash
Neuro - AOx3, no motor deficits
Extremities - no clubbing, no cyanosis, no edema
Incision - clean, dry
Dressing - clean, dry, intact
Counseling
-
no gu interventions at this time
Care Review
Data Reviewed
Discussed with: Hospitalist and Family
CT Scan: Image Pers Reviewed
--- NOTE | 2025-01-06 15:11 | CM ---
CM following re: discharge planning.
Reviewed pt's chart, met with pt.
Per Colorectal surgery - No plans for surgery, Nephrology ID and Urology following.
PT and OT evaluations noted - home PT vs outpatient PT/OT recommended. Pt is aware, expressed his agreement with having VN services and pt preferred [facility]
A referral to [facility] made.
Pt reports he has been living with spouse in an independent apartment at [facility] since June 2024, has 3 supportive sons. Pt described himself as independent in all areas [employer].
D/C plan: home with [facility] and family support. Family to transport at discharge.
CM will follow with discharge plan updates as hospitalization progresses
[2025-01-06 15:16] LABS: Urine Character Clear (Clear)
[2025-01-06 15:38] LABS: Urine Squamous Cell 0-2 /LPF (Few)
[2025-01-06 15:39] LABS: Urine White Cell 0-2 /HPF (0-5)
--- NOTE | 2025-01-06 16:07 | PTOTSP ---
Pt is able to ambulate in hallway without need for any assistive devices. He appears to be at his baseline. No PT needs. Will sign off.
[2025-01-06] MEDS: LOVENOX 40 MG SC (17:11)
[2025-01-06] MEDS: KLONOPIN 0.25 MG PO (23:01)
[2025-01-07] MEDS: ZOSYN 50 IV ×2 (01:53→08:30)
[2025-01-07] MEDS: KLONOPIN PO ×2 (05:33→05:42)
[2025-01-07] MEDS: TYLENOL 650 MG PO ×2 (05:55→11:01)
[2025-01-07 06:54] LABS: Hematocrit 37.2 % (39.0-52.0); Hemoglobin 12.8 g/dL (13.0-18.0); Mean Corp Hgb Conc. 34.4 g/dL (33.0-37.0); Mean Corpuscular Volume 86.7 fL (80.0-94.0); Platelet Count 197 10^3/uL (130-400); Red Cell Dist. Width 12.9 % (11.5-14.5)
[2025-01-07 07:10] LABS: ALT (SGPT) 47 U/L (0-50); AST (SGOT) 44 U/L (17-59); Albumin 3.9 g/dl (3.5-5.0); Alkaline Phosphatase 44 U/L (38-126); Blood Urea Nitrogen 10 mg/dl (9-20); Calcium 9.6 mg/dl (8.4-10.2); Carbon Dioxide 24 mmol/L (22-30); Chloride 105 mmol/L (98-107); Estimated Creatinine Clearance 53 ml/min; Glucose 83 mg/dl (70-99); Potassium 4.2 mmol/L (3.5-5.1); Sodium 135 mmol/L (135-145); Total Protein 6.7 g/dl (6.3-8.2); eGFR > 60.00
[2025-01-07 07:13] LABS: C-Reactive Protein < 5.00 mg/L (0.0-10.00)
[2025-01-07 07:45] VITALS: BP 126/56
[2025-01-07] MEDS: FLOMAX 0.4 MG PO (08:30)
[2025-01-07] MEDS: COZAAR 100 MG PO (08:31)
[2025-01-07] MEDS: TOPROL XL 25 MG PO (08:31)
--- NOTE | 2025-01-07 10:41 | W.PN.URO.CBU ---
Today's Communication / Plan
-
ready for d/c whenok by hospitalist
Assessment / Plan
-
over active bladder with exacerbation of frequncy howeve ur cx negbladder empty u/a wnl Possiblty extravesical pressure from colitis but no obvious revesible urinary etiolgy Suugest home with pyridium 200 q 8 prn
Diagnosis
-
Date of Service: January 07, 2025
-
Patient Diagnosis:
Post Op Day:
Patient Diagnosis:long h/o oveeractive bladder voids q 2-4 hours now admitted with abd pain possible colitis and voids q 1 hour straining to void ur cx neg bladder empty an ct neg h/o 2018 turp
Post Op Day:
Subjective
-
resolving frequency
Objective
-
Vital Signs
Temp Pulse Resp BP Pulse Ox
97.7 F 72 16 126/56 97
01/07/25 07:45 01/07/25 08:31 01/07/25 07:45 01/07/25 08:31 01/07/25 07:45
Intake and Output
01/06/25 01/07/25 01/08/25
06:59 06:59 06:59
Intake Total 1300 / 1300 1620 / 1620
Balance 1300 / 1300 1620 / 1620
Intake:
Oral fluids 720 / 720 1620 / 1620
IV fluids (Total) 480 / 480
IV piggybacks 100 / 100
Other:
Number of approximated SMALL 2
amounts of urine
Number of approximated MODERATE 3 2
amounts of urine
Number of unmeasured liquid
stools
Rectum 1
Laboratory Results
01/07/25 06:02
01/07/25 06:02
Review of Systems
-
: Frequency and Urgency
Physical Exam
-
General - well developed, well nourished, no acute distress
Chest - clear bilaterally
Abdomen - soft, non-tender, positive bowel sounds, no CVAT, no incisional pain or distention
Genitalia - normal
Rectal - normal
Skin - warm & dry with no rash
Neuro - AOx3, no motor deficits
Extremities - no clubbing, no cyanosis, no edema
Incision - clean, dry
Dressing - clean, dry, intact
Care Review
Data Reviewed
Discussed with: Nursing
--- NOTE | 2025-01-07 11:25 | W.PN.NEPH.PH ---
Today's Communication / Plan
-
Fluid restriction adjusted
Stable for discharge from nephrology stand
Assessment/Plan
-
Assessment
Diverticulitis
Prostatitis
Hyponatremia
Hypertension
hyperlipidemia
BPH
Plan
History is highly suggestive of excess ADH state likely on the basis of significant pain. There is not appear to be any imbalance in intake
Sodium up to 135 from following Samsca administration
Adjust fluid restriction to 50 ounces daily
He can be discharged on less than 58 ounces fluid with follow-up BMP to PCP
-
-
Date of Service: January 07, 2025
CC / HPI / ROS
-
Chief Complaint:
Hyponatremia
History of Present Illness:
Serum sodium yamilka from 125-135 following Samsca administration on 01/05/2025
Hemodynamically stable
Review of Systems:
No fevers
Some bladder discomfort
Subjectively nonoliguric
Labs
-
Labs:
WBC 7.1 10^3/uL (4.8-10.8) 01/07/25 06:02
RBC 4.29 10^6/uL (4.70-6.10) L 01/07/25 06:02
Hgb 12.8 g/dL (13.0-18.0) L 01/07/25 06:02
Hct 37.2 % (39.0-52.0) L 01/07/25 06:02
Plt Count 197 10^3/uL (130-400) 01/07/25 06:02
Sodium 135 mmol/L (135-145) 01/07/25 06:02
Potassium 4.2 mmol/L (3.5-5.1) 01/07/25 06:02
Chloride 105 mmol/L (98-107) 01/07/25 06:02
Carbon Dioxide 24 mmol/L (22-30) 01/07/25 06:02
BUN 10 mg/dl (9-20) 01/07/25 06:02
Creatinine 0.9 mg/dL (0.7-1.3) 01/07/25 06:02
eGFR > 60.00 01/07/25 06:02
Glucose 83 mg/dl (70-99) 01/07/25 06:02
Calcium 9.6 mg/dl (8.4-10.2) 01/07/25 06:02
Albumin 3.9 g/dl (3.5-5.0) 01/07/25 06:02
Physical Exam
-
Vital Signs:
Vital Signs
Temp Pulse Resp BP Pulse Ox
97.7 F 72 16 126/56 97
01/07/25 07:45 01/07/25 08:31 01/07/25 07:45 01/07/25 08:31 01/07/25 07:45
Cardiovascular:: Regular rate and rhythm
Respiratory:: Bilateral: CTA
Lung Excursion:: Normal
Abdomen:: Tender
Bowel Sounds:: Decreased
Extremity Edema:: None: Bilateral:
Purcell Catheter: No
--- NOTE | 2025-01-07 12:07 | CM ---
Addendum entered by Marley Romero 01/07/25 15:21:
CM notified that patient wants to appeal his d/c
Met w/ patient, spouse and daughter bedside. Shared concern of lack of BM and loose stool. GI concerns.
IMM reviewed, informed that a call has to be placed to [facility] to initiate appeal. Family agreeable for CM to reach out to the hospitalist first regarding concerns
TT PA and hospitalist, shared patient's concerns. Agreeable to hold d/c today and re evaluate tomorrow
Updated patient and family, wants to further discuss w/ nursing
Original Note:
Chart reviewed. Patient will return to [facility] today
[facility] accepted for services. Updated clinicals sent in [facility]
No other CM needs at this time
Plan: Home w/ [facility]
--- NOTE | 2025-01-07 13:00 | W.PN.UPDATE ---
Update Note
Progress Note Update
I have independently evaluated the patient at the bedside. I reviewed the case with the resident and agree with the documentation unless otherwise specified.
AFVSS. Sodium stable at 135 following tolvaptan. Bladder discomfort improved on phenazopyridine. Denies any new complaint
AO x 4, NAD. Benign cardiopulmonary exam. Suprapubic tenderness, improved, otherwise benign abdomen. No edema, palpable pulses. Skin warm and dry. Nonfocal neurologic exam
#Sigmoid diverticulitis. Clinically improving on IV Zosyn. Will continue to trend CBC and temperature curve, monitor abdomen exam. Transition to Augmentin 875-125 mg every 12 hours to complete 7-day course of antibiotic. Will need colonoscopy in 6
to 8 weeks as OP
#Bladder discomfort with intermittent urine retention.� H/O BPH s/p TURP.� No signs of infection, urology started phenazopyridine which led to improvement. Continue phenazopyridine and follow-up with urology as OP
#Euvolemic hyponatremia. 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 S/p 1 dose of tolvaptan on 01/05 with improvement of sodium from 125-133-135. Continue oral fluid restriction. Repeat BMP in 5 to 7 days as OP
Diet -- Fluid restricted 48 ounces
DVT prophylaxis -- SCDs
CODE STATUS -- Full
Disposition -- Discharge home
--- NOTE | 2025-01-07 13:14 | W.PN.HOSP.TC ---
Today's Communication/Plan
-
Transition to Augmentin 875-125 mg every 12 hours to complete 7-day course of antibiotic.
Will f/u with GI as an outpatient for a colonoscopy in 6 to 8 weeks as OP
Patient is stable for discharge today
Assessment / Plan
Assessment / Plan
84yo male with a history of one previous attack of diverticulitis, presents to the ER complaining of abdominal pain and constipation, found to have sigmoid diverticulitis on CT.
#Abdominal pain
Hx of diverticulitis, most likely due to diverticulitis
CT scan showed Mild acute sigmoid diverticulitis , no evidence of perforation , pericolic abbesses
continue Zosyn day #4 today, will continue for 5-7 days
full liquid diet
GI consulted
colorectal consulted recommend eventual colonoscopy as an outpatient
#Hyponatremia
Asymptomatic
Na 122--->125-->125-->133--135
nephrology consulted
IV fluid
currently on full liquid
oral fluid restriction to 40 oz per day ,
#Benign prostatic hypertrophy
- hx of BPH
- On tamsulosin
- Ct scan showed urinary bladder wall thickening
- Patient has suprapubic pain this morning, Urology consulted and ordered PSA and urinalysis and will see him tomorrow 01/07/2025
#Hypertension
Continue metoprolol and losartan
#Dyslipidemia
#Anxiety
Continue Clonazepam
DVT prophylaxis -Lovenox sc
code: full code
Anticipated Discharge: Today
Subjective/Interval History
-
Date of Service: January 07, 2025
Patient stated that his urinary frequency improved yesterday from each one and half hour to 3-4 hours. His suprapubic pain improved today.
Objective Data
-
Labs:
Laboratory Results
01/07/25
06:02
WBC 7.1
Hgb 12.8 L
Hct 37.2 L
Plt Count 197
Sodium 135
Potassium 4.2
Chloride 105
Carbon Dioxide 24
BUN 10
Creatinine 0.9
Glucose 83
Calcium 9.6
Total Bilirubin 0.8
AST 44
ALT 47
Alkaline Phosphatase 44
Vital Signs:
Vital Signs
Temp Pulse Resp BP Pulse Ox
97.7 F 72 16 126/56 97
01/07/25 07:45 01/07/25 08:31 01/07/25 07:45 01/07/25 08:31 01/07/25 07:45
I&O
01/06/25 01/07/25 01/08/25
06:59 06:59 06:59
Intake Total 1300 / 1300 1620 / 1620
Balance 1300 / 1300 1620 / 1620
Review of Systems
-
History Source: Patient
Respiratory: Reports No Symptoms
Cardiac: Reports No Symptoms
Abdomen/GI: Reports Abdominal Pain
Genitourinary: Reports Frequency
Musculoskeletal: Reports No Symptoms
Neuro: Reports No Symptoms
Physical Exam
-
General: Well Developed and Well Nourished
HEENT: Normocephalic and Atraumatic
Respiratory: Clear to Auscultation
Cardiac: Regular Rhythm and S1/S2
GI: Soft, Nondistended and Normal Bowel Sounds
Musculoskeletal: No Clubbing, No Cyanosis and No Edema
Skin: Warm and Dry
Neuro: Awake, Alert and Oriented
[2025-01-07] MEDS: ZOSYN IV (15:27)
[2025-01-07 15:36] VITALS: BP 164/72
[2025-01-07] MEDS: AUGMENTIN 875 MG/125 MG 1 TABLET PO (16:33)
--- NOTE | 2025-01-08 20:42 | W.DCSUMMARY ---
Documented by User: Mitchell Mcgraw MD, Resident 01/08/25 21:48
Discharge Summary
Discharge Data
Date of Admission: 01/05/25
Date of Discharge: 01/07/25
-
Pending Results: Yes
Additional Pending Results:
PSA
Hospital Course
Discharging Physician:
Stuart Conley , Mitchell Mcgraw
Disposition:
Home
Primary Care Physician:
Xena Hardy
Principal Discharge Diagnosis:
Diverticulitis
Chronic Discharge Diagnosis:
hypertension, dyslipidemia, CAD, BPH, GERD, anxiety, hyponatremia
Hospital Course:
This is a pleasant 84-year-old male who presented to [facility] ED for evaluation of abdominal pain. Patient reports having episode of diverticulitis in November 2024 with effective out patient treatment. He reports lower abdominal pain started again
approximately 1-1.5 weeks ago and has been consistent since then. He reports seeing GI out patient who placed him on oral antibiotics that had been ineffective. He reports loose bowel movements, and urinary frequency. Patient denies fever, chills,
cough, shortness of breath, chest pain, nausea, vomiting or constipation at the admission. Patient vital signs were stable, CT scan of the abd and pelvis showed mild acute sigmoid diverticulitis with no evidence for perforation or pericolonic
abscess and the patient admitted and started on Zosyn IV and colorectal consulted and recommended follow up as an an outpatient for eventual colonoscopy in 6-8 weeks after discharge, Pain control with Tylenol and Toradol during hospitalization.
Patient has been having bladder pain that made him difficult to sleep with difficulty urinating. He had to go to the bathroom several times overnight and would try to urinate but have difficulty and He has a hx of overreactive bladder and benign
prostatic hypertrophy. Urology consulted and patient received Pyridium as a urinary analgesia and the bladder pain improved.
During Hospitalization patient found to have Low sodium level 122-125 without any symptoms (headache, dizziness), highly suggestive of excess ADH state likely on the basis of significant pain. There is not appear to be any imbalance in intake.
Nephrology consult appreciated and a dose of Samsca was given with oral fluid restriction to 48 ounces daily. The sodium level improved 133 and then back to normal level 135.
Patient remained stable and afebrile with stable vital signs and discharged on oral Augmentin to complete at home for 5 days and Pyridium for bladder pain. Recommended to follow up with his PCP, urology and colorectal specialist as an outpatient
visits.
Important Imaging Findings:
CT Abd/Pel (IV only)-[facility] only on 01/03/2025:
FINDINGS:
CHEST: Mild atelectasis or scarring in the posterior right lower lobe. Small fat-containing right posterior diaphragmatic hernia. Severe coronary artery calcifications.
ABDOMEN:
Stable extrahepatic bile duct dilatation status post cholecystectomy. Fatty infiltration of the pancreas. Small hepatic cysts. The spleen and bilateral adrenal glands are unremarkable. Bilateral renal cysts. No hydronephrosis.
The abdominal aorta is normal in caliber. Mild calcified atherosclerosis.
No abdominal or retroperitoneal lymphadenopathy.
Colonic diverticulosis.Mild colonic wall thickening from the mid transverse colon to the sigmoid colon. While this could be secondary to bowel collapse, a mild colitis is certainly possible in the appropriate clinical setting. Etiologies include
infectious/inflammatory or ischemic colitis, although only a minor degree of atherosclerosis identified by imaging. No extraluminal free air or fluid collection. No bowel obstruction.
PELVIS: Urinary bladder wall thickening. The prostate gland is enlarged.
SKELETON: Chronic degenerative changes of the spine, bilateral sacroiliac joints, hips, and symphysis pubis. Grade 1 degenerative anterolisthesis of L5 on S1.
IMPRESSION:
Mild acute sigmoid diverticulitis. No evidence for perforation or pericolonic abscess.
Urinary bladder wall thickening, nonspecific but recommend correlation with a urinalysis if there is clinical concern for acute cystitis.
Electronically signed by Chidi Horowitz, 01/03/2025 4:01 PM
[employer] Dose Report: Up-to-date CT equipment and radiation dose reduction techniques were employed. CTDIvol: 8.4 - 8.5 mGy. DLP: 828 mGy-cm.
Discharge Plan
-
Patient Disposition: Home with Home Care
Discharge Diagnosis/Procedures: Sigmoid diverticulitis
Bladder pain urinary retention
Hyponatremia
Condition: Fair
Diet: Restrict fluids to 48 oz
Activity: As tolerated
Driving Restrictions: No driving for 24 hours
Bathing Restrictions: OK to Shower
Blood Work: BMP in 5 to 7 days as OP, have results sent to your family doctor
Others Tests: Colonoscopy as outpatient with colorectal surgeon
Referrals:
Tray Mccullough MD [Active, Urology] - in one to two weeks
Referral Note: Please follow up with urologist and make an appointment by calling this number [phone]
Xena Hardy DO [Family Provider, Internal Medicine] - in less than 1 week
Timothy Dawn MD [Active, ColoRectal] - in three to four weeks
Prescriptions:
New
phenazopyridine 200 mg Tablet
200 mg PO TIDPRN PRN (Reason: freqeuncy or dysuria) 7 Days Qty: 20 0RF
rosuvastatin 5 mg Tablet
5 mg PO DAILY Qty: 30 0RF
amoxicillin-pot clavulanate 875-125 mg tablet
1 tab PO Q12H 5 Days Qty: 10 0RF
Continued
losartan 100 MG tablet
100 mg PO DAILY
cetirizine [Zyrtec] 10 mg Tablet
10 mg PO DAILY PRN (Reason: allergies )
fluticasone propionate 50 mcg/actuation [place],Suspension
1 spray INTRANASAL BID PRN (Reason: allergies)
multivitamin Tablet
1 tab PO DAILY
clonazepam 0.5 mg tablet
0.5 mg PO HS
Patient Comments:
01/15/2023: last filled 01/06/23, 30 tabs for 30 days from [facility]
calcium carbonate [Tums] 200 mg calcium (500 mg) Tablet,Chewable
200 mg PO BID PRN (Reason: heartburn)
metoprolol succinate 25 mg tablet extended release 24 hr
25 mg PO DAILY
Metamucil (with sugar) 3.4 GM powder in packet
3.4 gm PO DAILY PRN (Reason: constipation)
tamsulosin 0.4 mg capsule
0.4 mg PO DAILY
Discontinued
levofloxacin 750 mg Tablet
750 mg PO DAILY
metronidazole 500 mg Tablet
500 mg PO TID
Discharge Orders:
Discharge Patient (As Directed); Ordered 01/07/25
Ordered By: Mitchell Mcgraw
Discharge Date and Time
Discharge Date/Time: 01/07/25 18:01
Print Language: BAHAMIAN

Documented by User: Stuart Conley DO 01/09/25 14:27
Discharge Summary
Discharge Data
Date of Admission: 01/05/25
Date of Discharge: 01/07/25
Total time spent discharging patient (in min): 35
Discharge Plan
-
Patient Disposition: Home with Home Care
Discharge Diagnosis/Procedures: Sigmoid diverticulitis
Bladder pain urinary retention
Hyponatremia
Condition: Fair
Diet: Restrict fluids to 48 oz
Activity: As tolerated
Driving Restrictions: No driving for 24 hours
Bathing Restrictions: OK to Shower
Blood Work: BMP in 5 to 7 days as OP, have results sent to your family doctor
Others Tests: Colonoscopy as outpatient with colorectal surgeon
Referrals:
Tray Mccullough MD [Active, Urology] - in one to two weeks
Referral Note: Please follow up with urologist and make an appointment by calling this number [phone]
Xena Hardy DO [Family Provider, Internal Medicine] - in less than 1 week
Timothy Dawn MD [Active, ColoRectal] - in three to four weeks
Prescriptions:
New
phenazopyridine 200 mg Tablet
200 mg PO TIDPRN PRN (Reason: freqeuncy or dysuria) 7 Days Qty: 20 0RF
rosuvastatin 5 mg Tablet
5 mg PO DAILY Qty: 30 0RF
amoxicillin-pot clavulanate 875-125 mg tablet
1 tab PO Q12H 5 Days Qty: 10 0RF
Continued
losartan 100 MG tablet
100 mg PO DAILY
cetirizine [Zyrtec] 10 mg Tablet
10 mg PO DAILY PRN (Reason: allergies )
fluticasone propionate 50 mcg/actuation [place],Suspension
1 spray INTRANASAL BID PRN (Reason: allergies)
multivitamin Tablet
1 tab PO DAILY
clonazepam 0.5 mg tablet
0.5 mg PO HS
Patient Comments:
01/15/2023: [facility]23[facility]
calcium carbonate [Tums] 200 mg calcium (500 mg) Tablet,Chewable
200 mg PO BID PRN (Reason: heartburn)
metoprolol succinate 25 mg tablet extended release 24 hr
25 mg PO DAILY
Metamucil (with sugar) 3.4 GM powder in packet
3.4 gm PO DAILY PRN (Reason: constipation)
tamsulosin 0.4 mg capsule
0.4 mg PO DAILY
Discontinued
levofloxacin 750 mg Tablet
750 mg PO DAILY
metronidazole 500 mg Tablet
500 mg PO TID
Discharge Orders:
Discharge Patient (As Directed); Ordered 01/07/25
Ordered By: Mitchell Mcgraw
Discharge Date and Time
Discharge Date/Time: 01/07/25 18:01
Print Language: BAHAMIAN
== END 2025-01-07 18:01 | disposition home health service (06) | DRG 392 ==
LOC: 2 NORTH 08:47
PROVIDERS: Nurse Practitioner Family; Specialist Research Data Abstracter/Coder; ADMITTING PHYSICIAN Internal Medicine; ATTENDING PHYSICIAN Internal Medicine; CONSULT PHYSICIAN Specialist; EMERGENCY PHYSICIAN Emergency Medicine; FAMILY PHYSICIAN Internal Medicine; OTHER PHYSICIAN Specialist; OTHER PHYSICIAN Surgery
DX: K57.32 Diverticulitis of large intestine without perforation or abscess without bleeding (principal); E22.2 Syndrome of inappropriate secretion of antidiuretic hormone; E87.8 Other disorders of electrolyte and fluid balance, not elsewhere classified; I10 Essential (primary) hypertension; K21.9 Gastro-esophageal reflux disease without esophagitis; F41.9 Anxiety disorder, unspecified; K59.00 Constipation, unspecified; N32.81 Overactive bladder; E78.00 Pure hypercholesterolemia, unspecified; E86.1 Hypovolemia; I25.10 Atherosclerotic heart disease of native coronary artery without angina pectoris; N40.1 Benign prostatic hyperplasia with lower urinary tract symptoms; R33.9 Retention of urine, unspecified; Z79.899 Other long term (current) drug therapy
CPT/HCPCS: 74177; 80048; 80053; 81003; 81015; 82570; 83935; 84153; 84154; 84300; 85025; 85027; 86140; 97162; 97166; 97530; 97535; 99285; Q9967

== ENCOUNTER → 2025-02-08 14:08 | Outpatient (REF) | payer OTHER, SELFPAY | LOC: HWRAD 14:08 | PROVIDERS: ATTENDING PHYSICIAN Urology; FAMILY PHYSICIAN Internal Medicine | DX: R35.0 Frequency of micturition (principal); R10.84 Generalized abdominal pain; M41.9 Scoliosis, unspecified | CPT/HCPCS: 74176 ==

== ENCOUNTER → 2025-02-15 10:19 | Outpatient (REF) | payer OTHER, SELFPAY | LOC: HWRCS 10:19 | PROVIDERS: ATTENDING PHYSICIAN Internal Medicine Cardiovascular Disease; FAMILY PHYSICIAN Internal Medicine | DX: R00.2 Palpitations (principal); R07.2 Precordial pain | CPT/HCPCS: 93306 ==

== ENCOUNTER 2025-03-16 06:37 | Day surgery (SDC) | payer OTHER, SELFPAY | END 2025-03-16 11:45 | disposition home or self-care (01) | LOC: GI 06:37 | PROVIDERS: ATTENDING PHYSICIAN Surgery; FAMILY PHYSICIAN Internal Medicine | DX: Z12.11 Encounter for screening for malignant neoplasm of colon (principal); K63.5 Polyp of colon; K57.30 Diverticulosis of large intestine without perforation or abscess without bleeding; K56.699 Other intestinal obstruction unspecified as to partial versus complete obstruction; Z86.0101 Personal history of adenomatous and serrated colon polyps | CPT/HCPCS: 45380; 88305 ==

== ENCOUNTER → 2025-03-26 09:57 | Outpatient (REF) | payer OTHER, SELFPAY | LOC: RAD 09:57 | PROVIDERS: ATTENDING PHYSICIAN Internal Medicine | DX: M25.552 Pain in left hip (principal) | CPT/HCPCS: 73502 ==